=== PATIENT | female | born 1955 | race Caucasian/White ===

== ENCOUNTER 2016-10-05 20:12 | Emergency (ER) | payer OTHER ==
--- NOTE | 2016-10-05 20:37 | DIRPT ---
CLINICAL DATA: Acute onset of severe left shoulder pain yesterday with limited range of motion. No known injury. Current history of rheumatoid arthritis. EXAM: LEFT SHOULDER - 2+ VIEW COMPARISON: None. FINDINGS: No evidence of acute or subacute fracture or glenohumeral dislocation. Calcification involving the superior labrum. Acromioclavicular joint intact without significant degenerative change. Well-preserved bone mineral density. IMPRESSION: No osseous abnormality. Faint calcification involving the superior labrum. Electronically Signed By: Martinez Triplett M.D. On: 10/05/2016 20:35
[2016-10-05 20:40] VITALS: BMI 23.9
--- NOTE | 2016-10-05 23:13 | EDPRACDOC ---
- General Information Chief Complaint: Shoulder Pain Stated Complaint: LEFT SHOULDER PAIN Time Seen by Provider: 10/05/16 22:38 Information Source: Patient Home Medications: Home Medications Albuterol Sulfate [Proair Hfa] 2 puff INH Q4-6H PRN 10/05/16 Amitriptyline HCl 25 mg PO QHS 10/05/16 Folic Acid 1 mg PO QHS 10/05/16 Methotrexate Sodium [Methotrexate] 15 mg PO SA 10/05/16 Ondansetron HCl [Zofran] 4 mg PO Q6H PRN #20 tab 10/05/16 Oxycodone Immediate Release [Oxycodone Immediate Release (OxyIR)] 5 mg PO Q6H PRN #30 tab 10/05/16 Allergies/Adverse Reactions: Allergies Allergy/AdvReac Type Severity Reaction Status Date / Time hydromorphone [Hydromorphone] Allergy Intermediate Unknown/See Verified 19:49 Comments acetaminophen [From Percocet] Allergy low bp Verified 03/12/15 19:49 bacitracin [From Neosporin] Allergy rash Verified 03/12/15 19:49 bacitracin zinc Allergy rash Verified 03/12/15 19:49 [From Neosporin] benzalkonium chloride Allergy rash Verified 03/12/15 19:49 [From Neosporin] gramicidin D [From Neosporin] Allergy rash Verified 03/12/15 19:49 hydrocodone bitartrate Allergy vomiting Verified 03/12/15 19:49 [From Vicodin] hydrocortisone Allergy rash Verified 03/12/15 19:49 [From Neosporin] naproxen sodium Allergy unknown Verified 03/12/15 19:49 [From Anaprox] neomycin sulfate Allergy rash Verified 03/12/15 19:49 [From Neosporin] oxycodone HCl [From Percocet] Allergy low bp Verified 03/12/15 19:49 polymyxin B [From Neosporin] Allergy rash Verified 03/12/15 19:49 polymyxin B sulfate Allergy rash Verified 03/12/15 19:49 [From Neosporin] BLEACH Allergy Unknown AIRWAY Uncoded 03/12/15 19:49 CLOSES UP PERFUME Allergy Unknown AIRWAY Uncoded 03/12/15 19:49 CLOSES OFF SCENTED LOTIONS Allergy Unknown AIRWAY Uncoded 03/12/15 19:49 CLOSES OFF - History of Present Illness Onset: 1 month HPI: PT PRESENTS TODAY WITH LEFT SHOULDER PAIN X 3 DAYS. STATES THAT THIS STARTED SPONTANEOUSLY AND SHE STOPPED CROCHETING HOPING IT WOULD FEEL BETTER. NO INJURY. Description: Reports: With Use Location: Reports: Left Circumstances: Reports: Spontaneous Relevant History: Reports: None Pain Severity: Moderate Associated Signs & Symptoms: Reports: None ED Past Medical History - History Reviewed Yes Nurses notes reviewed and agree except as marked - Patient Medical History GI/ History: Reports: Gastroesophageal Reflux Musculoskeletal History: Reports: Arthritis (RA), Rheumatoid Arthritis, Osteoarthritis Psychological History: Denies: Depression Systemic History: Reports: AnemiaComment Only: Cancer (l) Additional Past Medical History: diverticulosis with diverticulitits Surgical History: Reports: Hysterectomy - Family Medical History Reports: Diabetes (grandmother's sister's side), Stroke (Mom), Cardiac Disorders (DAD-CHF). Denies: Cancer - Social Medical History Smoking Status: Current some day smoker EDM Review of Systems - Review of Systems ROS Negative Except as Marked: Yes All systems reviewed and were negative except as marked Constitutional: No Symptoms Reported Respiratory: No Symptoms Reported Cardiovascular: No Symptoms Reported Gastrointestinal: No Symptoms Reported Neurological: No Symptoms Reported Musculoskeletal: Shoulder Integumentary: No Symptoms Reported - Physical Exam Constitutional: Alert (Awake), No apparent distress Oriented to: Time, Person, Place Last recorded Vital Signs: Last Vital Signs Temp 97.9 F 10/05/16 22:56 Pulse 91 10/05/16 22:56 Resp 18 10/05/16 22:56 BP 120/78 10/05/16 22:56 Pulse Ox 98 10/05/16 22:56 Oxygen Pulse Oxygen Saturation 98 O2 Device Room Air Oxygen Flow Rate Fraction of Inspired Oxygen ( FIO2) - HEENT Head: Normal Eye Exam: Normal Neck: Normal, Denies Pain, Midline - Respiratory/Cardiovascular Respiratory: Normal - CTA Cardiovascular: Normal - GI Palpation: Normal Tenderness: Non tender - Musculoskeletal Back: Normal Extremities: Other (SEVERE PAIN WITH VERY LIMITED ROM; NO SWELLING/ERYTHEMA NOTED; NO DEFORMITY; DISTAL PMS INTACT;) - Integumentary Skin: Normal Lymphatics: Normal - Neurologic Cerebellar: Normal Mood Description: Normal Thought: Coherent Perception: Normal ED Shoulder Problem Exam - Musculoskeletal Clavicle: Normal Shoulder: Limited ROM, Tender Arm: Normal Distal Function/Circulation: Normal Decision Time to Discharge: 23:12 - Departure Disposition: Home Condition: Good Final Diagnosis: Shoulder pain Qualifiers: Laterality: left Chronicity: acute Qualified Code(s): M25.512 - Pain in left shoulder Instructions: RICE: Routine Care for Injuries Education/Counseling Given To: Patient Education/Counseling Given Regarding: Diagnosis, Treatment, Follow Up Referrals: Princess Miranda MD [Primary Care Provider] - One Week Virgilio Coronado MD [Staff Physician] - One Week Prescriptions: New Oxycodone Immediate Release [Oxycodone Immediate Release (OxyIR)] 5 mg PO Q6H PRN #30 tab PRN Reason: Pain Ondansetron HCl [Zofran] 4 mg PO Q6H PRN #20 tab PRN Reason: Nausea/Vomiting No Action Methotrexate Sodium [Methotrexate] 15 mg PO SA Folic Acid 1 mg PO QHS Amitriptyline HCl 25 mg PO QHS Albuterol Sulfate [Proair Hfa] 2 puff INH Q4-6H PRN PRN Reason: Shortness Of Breath Additional Instructions: WEAR SLING AND FOLLOW UP WITH ORTHO IF SYMPTOMS PERSIST.
[2016-10-05 23:28] VITALS: BP 117/71; PULSE 90; TEMP 98
== END 2016-10-05 23:26 | disposition home or self-care (01) ==
LOC: ED 20:12
DX: M25.512 Pain in left shoulder (principal)
CPT/HCPCS: 99283